=== PATIENT | male | born 2000 | race Caucasian/White ===

== ENCOUNTER 2023-09-11 12:18 | Emergency (ER) | payer OTHER ==
[~2023-09-11] VITALS: Ht 185.4 cm; Wt 112.5 kg
[~2023-09-11 12:18] MED LIST: AUGMENTIN ES-6100 ML PO; CLARITIN5 MG/5 ML PO
[2023-09-11] MEDS ORDERED: ONDANSETRON4 MG SL (13:02)
== END 2023-09-11 13:17 | disposition home or self-care (01) ==
LOC: ED 12:18
DX: R11.2 Nausea with vomiting, unspecified (principal); R63.0 Anorexia; Z68.1 Body mass index [BMI] 19.9 or less, adult; Z91.040 Latex allergy status